=== PATIENT | male | born 1995 | race African-American/Black ===

== ENCOUNTER 2017-02-16 16:03 | Emergency (ER) | END 2017-02-16 16:50 | disposition home or self-care (01) ==

== ENCOUNTER 2017-06-30 00:52 | Emergency (ER) | END 2017-06-30 03:54 | disposition home or self-care (01) ==

== ENCOUNTER 2017-07-08 19:52 | Emergency (ER) | END 2017-07-08 23:37 | disposition home or self-care (01) ==

== ENCOUNTER 2017-12-16 15:39 | Emergency (ER) | END 2017-12-16 17:10 | disposition left against medical advice (07) ==

== ENCOUNTER 2017-12-25 18:52 | Emergency (ER) | END 2017-12-25 21:13 | disposition home or self-care (01) ==